=== PATIENT | female | born 1995 | race American Indian/Alaskan Native ===

== ENCOUNTER 2017-07-21 18:10 | Emergency (ER) | payer BC ==
[2017-07-21 18:42] LABS: Hematocrit 38.8 % (30.3-42.9); Hemoglobin 13.2 gm/dl (10.1-14.3); Mean Platelet Volume 8.2 fl (6-12); Red Blood Count 4.23 M/mm3 (3.65-5.03); Red Cell Distribution Width 12.5 % (13.2-15.2)
[2017-07-21 18:49] LABS: BUN/Creatinine Ratio 11; Blood Urea Nitrogen 8 mg/dL (7-17); Hemolysis Index 9
[2017-07-21 19:05] LABS: HCG Qualitative,Urine Negative (Negative)
[2017-07-21 19:06] LABS: Bilirubin,Urine NEG (Negative); Blood,Urine NEG (Negative); Color,Urine Yellow (Yellow); Mucus,Urine 3+ /HPF; Protein,Urine <15 mg/dL mg/dL (Negative); Urobilinogen,Urine < 2.0 mg/dL (<2.0)
--- NOTE | 2017-07-21 21:14 | Emergency Department Report ---
ED Syncope HPI - General Chief Complaint: Syncope Stated Complaint: TINGLING IN HANDS Time Seen by Provider: 07/21/17 20:14 Source: patient, family Exam Limitations: no limitations - History of Present Illness Initial Comments: Ms. Moses is a 22-year-old female with two episodes of syncope within the last day. Yesterday she felt as if she did not eat enough. She felt faint. She then fell to the ground after prolonged standing. She felt that she did not eat enough. She had numbness in both her hands after awakening. She denies any symptoms now. She denies chest pain. No shortness of breath. According to triage note, She stated that she had heart racing with chest pressure. 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 She did have fainting episodes in high school. Normally related to her menstrual cycles. Timing/Prior Episodes: multiple episodes today Precipitating Factors: Positive: none Context: standing Loss of Consciousness: brief (seconds) Current Symptoms: back to normal - Related Data Allergies/Adverse Reactions: Allergies Penicillins Allergy (Verified 07/21/17 18:20) Unknown ED Review of Systems ROS: Stated complaint: TINGLING IN HANDS Other details as noted in HPI Comment: All other systems reviewed and negative Constitutional: denies: chills ENT: denies: ear pain Respiratory: denies: cough Cardiovascular: chest pain, palpitations ED Past Medical Hx - Past Medical History Additional medical history: anemia - Surgical History Past Surgical History?: No - Social History Smoking Status: Never Smoker Substance Use Type: Alcohol ED Physical Exam - General Limitations: No Limitations General appearance: alert, in no apparent distress - Head Head exam: Present: atraumatic, normocephalic - Eye Eye exam: Present: normal appearance - ENT ENT exam: Present: normal orophraynx, mucous membranes moist - Neck Neck exam: Present: normal inspection. Absent: tenderness, meningismus - Respiratory Respiratory exam: Present: normal lung sounds bilaterally. Absent: respiratory distress, wheezes, rales - Cardiovascular Cardiovascular Exam: Present: regular rate, normal rhythm, normal heart sounds. Absent: bradycardia, tachycardia, systolic murmur, diastolic murmur, rubs, gallop - GI/Abdominal GI/Abdominal exam: Present: soft, normal bowel sounds. Absent: distended, tenderness, guarding - Extremities Exam Extremities exam: Present: normal inspection - Back Exam Back exam: Present: normal inspection - Neurological Exam Neurological exam: Present: alert, oriented X3 - Psychiatric Psychiatric exam: Present: normal affect, normal mood - Skin Skin exam: Present: warm, dry, intact, normal color. Absent: rash ED Course Vital Signs 07/21/17 07/21/17 18:15 20:11 Temperature 98.1 F Pulse Rate 88 63 Respiratory 18 18 Rate Blood Pressure 126/85 Blood Pressure 114/64 [Left] O2 Sat by Pulse 100 100 Oximetry ED Medical Decision Making - Lab Data Result diagrams: 07/21/17 18:31 07/21/17 18:31 Laboratory Results - last 24 hr 07/21/17 07/21/17 07/21/17 18:31 18:31 18:52 WBC 4.1 L RBC 4.23 Hgb 13.2 Hct 38.8 MCV 92 MCH 31 MCHC 34 RDW 12.5 L Plt Count 294 Sodium 137 Potassium 3.8 Chloride 100.1 Carbon Dioxide 26 Anion Gap 15 BUN 8 Creatinine 0.7 Estimated GFR > 60 BUN/Creatinine Ratio 11 Glucose 88 Calcium 9.0 Urine Color Yellow Urine Turbidity Clear Urine pH 5.0 Ur Specific [place] 1.029 Urine Protein <15 mg/dl Urine Glucose (UA) Neg Urine Ketones Neg Urine Blood Neg Urine Nitrite Neg Ur Reducing Substances Not Reportable Urine Bilirubin Neg Urine Ictotest Not Reportable Urine Urobilinogen < 2.0 Ur Leukocyte Esterase Sm Urine WBC (Auto) 7.0 H Urine RBC (Auto) 1.0 U Epithel Cells (Auto) 5.0 Urine Mucus 3+ Urine HCG, Qual Negative Vital Signs - 24 hr 07/21/17 07/21/17 18:15 20:11 Temperature 98.1 F Pulse Rate 88 63 Respiratory 18 18 Rate Blood Pressure 126/85 Blood Pressure 114/64 [Left] O2 Sat by Pulse 100 100 Oximetry - Medical Decision Making Brenda presents with two episodes of syncope. PERC negative for PE. Do not suspect arrhythmia or seizure. I recommended tilt table test by primary physician. POTS is a consideration. Critical care attestation.: If time is entered above; I have spent that time in minutes in the direct care of this critically ill patient, excluding procedure time. ED Disposition Clinical Impression: Syncope Disposition: DC-01 TO HOME OR SELFCARE Is pt being admited?: No Does the pt Need Aspirin: No Condition: Stable Instructions: Syncope (ED) Additional Instructions: You need a tilt table test. Referrals: MAURA BURGOS MD [Staff Physician] - 2-3 Days Time of Disposition: 21:21
[2017-07-21 22:45] VITALS: BP 112/72
== END 2017-07-21 21:50 | disposition home or self-care (01) ==
LOC: ED 18:10
DX: R55 Syncope and collapse (principal); R20.0 Anesthesia of skin; R07.89 Other chest pain; Z88.0 Allergy status to penicillin; Z86.2 Personal history of diseases of the blood and blood-forming organs and certain disorders involving the immune mechanism
CPT/HCPCS: 36415; 80048; 81001; 81025; 85027; 93005; 93010; 99283